=== PATIENT | male | born 1985 | race Caucasian/White ===

== ENCOUNTER 2022-01-19 08:41 | Emergency (ER) | payer OTHER ==
[2022-01-19 08:47] VITALS: TEMP 98.2
[2022-01-19] MEDS ORDERED: LIDOCAINE 1% INJ 10MG/ML (5 ML VIAL-PF) SQ ONE (09:17)
--- NOTE | 2022-01-19 10:00 | ED ---
Wound/Laceration HPI - General Chief Complaint: Wound/Laceration Stated Complaint: Facial Laceration Time Seen by Provider: 01/19/22 08:53 Source: patient, RN notes reviewed Mode of arrival: ambulatory Limitations: no limitations - History of Present Illness Initial Comments: 36-year-old male presents emergency from chief complaint lip laceration. Patie nt states that he fell into a steel bench 4 hours ago. Patient no loss conscious and went of headache, loose dentition. Patient complains of only lip injury. He states he attempted glue it did not work. He states his tetanus is up-to-date. Patient states he has mild discomfort at the site. Patient denies any neck pain or extremity injury. - Related Data Allergies Allergy/AdvReac Type Severity Reaction Status Date / Time No Known Allergies Allergy Verified 01/19/22 08:44 Review of Systems ROS Statement: Those systems with pertinent positive or pertinent negative responses have been documented in the HPI. ROS Other: All systems not noted in ROS Statement are negative. Past Medical History Past Medical History: No Reported History History of Any Multi-Drug Resistant Organisms: None Reported Past Surgical History: No Surgical Hx Reported Past Psychological History: No Psychological Hx Reported Smoking Status: Never smoker Past Alcohol Use History: Occasional Past Drug Use History: None Reported General Exam Limitations: no limitations General appearance: alert, in no apparent distress Head exam: Present: atraumatic, normocephalic, normal inspection Eye exam: Present: normal appearance, PERRL, EOMI. Absent: scleral icterus, conjunctival injection, periorbital swelling ENT exam: Present: mucous membranes moist, TM's normal bilaterally. Absent: normal oropharynx (Extensive very irregular lip laceration does not cross the vermilion border approximate 4 cm) Neck exam: Present: normal inspection, full ROM. Absent: tenderness, meningismus, lymphadenopathy Respiratory exam: Present: normal lung sounds bilaterally. Absent: respiratory distress, wheezes, rales, rhonchi, stridor Cardiovascular Exam: Present: regular rate, normal rhythm, normal heart sounds. Absent: systolic murmur, diastolic murmur, rubs, gallop, clicks Neurological exam: Present: alert, oriented X3, CN II-XII intact Course Vital Signs 01/19/22 01/19/22 08:45 10:09 Temperature 98.2 F Pulse Rate 83 79 Respiratory 16 18 Rate Blood Pressure 129/75 124/84 O2 Sat by Pulse 98 96 Oximetry Procedures - Laceration Laceration #1 Consent Obtained: verbal consent Indication: laceration Site: lip Size (cm): 4 Description: flap, irregular Depth: simple, single layer Anesthetic Used: lidocaine 1%, without epi Anesthesia Technique: local infiltration Amount (mls): 5 Pre-repair: wound explored, irrigated extensively, deep structures intact Type of Sutures: nylon, vicryl Size of Sutures: 6-0 Number of Sutures: 10 Technique: simple, interrupted Patient Tolerated Procedure: well, no complications Medical Decision Making - Medical Decision Making Patient's lip laceration was approximated, patient tolerated well patient was given strict return parameters, wound care instructions. Patient discharged in stable condition return parameters were discussed. Disposition Clinical Impression: Lip laceration Disposition: HOME SELF-CARE Condition: Stable Instructions (If sedation given, give patient instructions): Facial Laceration (ED) Additional Instructions: Sutures removed in 7 days.Please return to the Emergency Department if symptoms worsen or any other concerns. Is patient prescribed a controlled substance at d/c from ED?: No Referrals: None,Stated [REFERRING] - 1-2 days Time of Disposition: 09:59
[2022-01-19 10:11] VITALS: BP 124/84; PULSE 79; RESP 18
== END 2022-01-19 10:11 | disposition home or self-care (01) ==
LOC: EC 08:41
DX: S01.81XA Laceration without foreign body of other part of head, initial encounter (principal); W20.8XXA Other cause of strike by thrown, projected or falling object, initial encounter
CPT/HCPCS: 12013; 99282; J2001